=== PATIENT | male | born 1960 | race African-American/Black ===

== ENCOUNTER 2021-08-11 17:56 | Emergency (ER) | payer MEDICARE ==
[~2021-08-11] VITALS: Ht 172.7 cm; Wt 124.7 kg
[2021-08-11] MEDS ORDERED: LIDOCAINE HCL 400MG/20ML VIAL ONE (18:13)
[2021-08-11] MEDS ORDERED: NEOM30OI18 TP (18:29)
[2021-08-11] MEDS ORDERED: CEPH500B PO (18:29)
[2021-08-11] MEDS ORDERED: TETANUS/DIPHTHERIA TOXOID [ADULT] 0.5 ML VIAL IM ONE (18:30)
[2021-08-11] MEDS ORDERED: ACETAMINOPHEN 325 MG TAB PO ONE (18:30)
[2021-08-11] MEDS ORDERED: LIDOCAINE HCL-MPF 2% 5ML VIAL INJ SCH (18:30)
[2021-08-11] MEDS ORDERED: NEOMY SULF/BACITRA/POLYMYXIN B 1 EACH PACKET TP ONE (18:35)
[2021-08-11 18:52] VITALS: BP 116/70
== END 2021-08-11 18:54 | disposition home or self-care (01) ==
LOC: EDH 17:56
DX: S61.411A Laceration without foreign body of right hand, initial encounter (principal); I10 Essential (primary) hypertension; E78.00 Pure hypercholesterolemia, unspecified; E11.9 Type 2 diabetes mellitus without complications; Z85.028 Personal history of other malignant neoplasm of stomach; Z88.5 Allergy status to narcotic agent; X58.XXXA Exposure to other specified factors, initial encounter; Y93.89 Activity, other specified; Y92.89 Other specified places as the place of occurrence of the external cause; Y99.8 Other external cause status
CPT/HCPCS: 12002; 90471; 90714; 99283; J3490

== ENCOUNTER → 2021-08-23 | Outpatient (CLI) | payer MEDICARE ==
[~2021-08-23] MED LIST: CEPH500B PO; NEOM30OI18 TP
== END | disposition short-term general hospital (02) ==
LOC: RAH 08:33
PROVIDERS: ATTEND Internal Medicine
DX: K76.0 Fatty (change of) liver, not elsewhere classified (principal)
CPT/HCPCS: 76700